=== PATIENT | female | born 1965 | race Caucasian/White ===

== ENCOUNTER 2022-11-01 02:26 | Outpatient (CLI) | payer BC, SELFPAY ==
--- NOTE | 2022-11-01 | DI.MAMMO_ITS ---
Exam(s) MAMMO SCREENING EXAM: MAMMO SCREENING CLINICAL HISTORY: SCREENING, Z12.39. TECHNIQUE: Bilateral full field digital CC and MLO mammographic images were obtained with 3D tomosyn thesis and utilizing computer aided detection (CAD). COMPARISON: Prior outside mammograms were reviewed. FINDINGS: There are no new significant findings right breast. Left breast on 3D MLO imaging there is a suggestion an asymmetric density-possible nodule located 2 c m in from the nipple on the MLO 3D images and measuring 7 x 6 mm. There are no malignant-appearing microcalcification groups in this region or elsewhere in either [address]. There is no significant architectural distortion nor skin thickening-retraction. IMPRESSION: 1. No radiographic evidence of malignancy in the right breast. 2. Asymmetric density-possible left breast nodule. Spot compression MLO view and left breast ultraso und recommended. BI-RADS Category 0 - Assessment Incomplete: Need additional imaging evaluation Breast Density - Category C - Heterogeneously dense Breast density Category C or D implies that the patient has dense breast tissue. Dense breast tissue can make it harder to find cancer on a mammogram. Dense breast tissue is also associated with an incr eased risk of breast cancer. This information about the result of the mammogram report was provided to the patient to raise their awareness. Use this report when you speak with the patient about their risks for breast cancer, which includes their family history. At that time, you may recommend additional screening tests (Ultrasoun d or MRI) as these tests may add significant information. A negative radiographic report should not delay biopsy if a dominant or clinically suspicious mass is present. Up to ten percent of cancers are not identified on mammography. A negative report may reinforce clinical impression. Adenosis and dense breasts may obscure an underlying neoplasm. False positive reports average 6 to 10%. Patient will receive a letter notifying them of these results.
== END 2022-11-01 02:46 ==
PROVIDERS: Visit Provider Nurse Practitioner Family
DX: Z12.31 Encounter for screening mammogram for malignant neoplasm of breast (principal)
CPT/HCPCS: 77063; 77067

== ENCOUNTER 2022-11-04 14:34 | Outpatient (CLI) | payer BC, SELFPAY ==
--- NOTE | 2022-11-04 | DI.MAMMO_ITS ---
Exam(s) MG MAMMO SCREEN CALL BACK UNI US BREAST LT COMPLETE EXAM: MG MAMMO SCREEN CALL BACK UNI and U/S breast LT complete CLINICAL HISTORY: F/U MAMMO, R92.8, ASYMETRIC DENSITY,? LT NODULE. TECHNIQUE: Craniocaudal and mediolateral oblique Full Field Digital Mammography views of the left br east with Computer Aided Diagnosis followed by Tomosynthesis and left breast ultrasound. COMPARISON: Comparison is made with prior examinations. FINDINGS: Mammography/Tomosynthesis: Masses/Architectural Distortion: The area of nodularity is no longer visualized on the additional vie w. No suspicious nodules or areas of architectural distortion is seen. Microcalcifictions: No suspicious pleomorphic-type are seen. Skin Thickening/Nipple Retraction: None. Complete left breast US: Echotexture: Normal appearance of the glandular tissue. Shadowing: No suspicious foci. Cyst: None. Solid lesions: None seen. Ductal dilation: None. IMPRESSION: 1. No evidence of malignancy is noted. 2. A six-month follow-up left mammogram is recommended for re-evaluation. 3. The findings were discussed with the patient on the date of the examination. BI-RADS Category 3 - 6 month - Probably Benign Finding: Recommend follow-up imaging in 6 months Breast Density - Category C - Heterogeneously dense Breast density Category C or D implies that the patient has dense breast tissue. Dense breast tissue can make it harder to find cancer on a mammogram. Dense breast tissue is also associated with an incr eased risk of breast cancer. This information about the result of the mammogram report was provided to the patient to raise their awareness. Use this report when you speak with the patient about their risks for breast cancer, which includes their family history. At that time, you may recommend additional screening tests (Ultrasoun d or MRI) as these tests may add significant information. A negative radiographic report should not delay biopsy if a dominant or clinically suspicious mass is present. Up to ten percent of cancers are not identified on mammography. A negative report may reinforce clinical impression. Adenosis and dense breasts may obscure an underlying neoplasm. False positive reports average 6 to 10%. Patient will receive a letter notifying them of these results.
== END 2022-11-04 14:54 ==
PROVIDERS: Visit Provider Nurse Practitioner Family
DX: R92.8 Other abnormal and inconclusive findings on diagnostic imaging of breast (principal)
CPT/HCPCS: 76642; 77063; 77067

== ENCOUNTER 2023-03-18 03:10 | Outpatient (CLI) | payer BC, SELFPAY ==
[2023-03-18 16:54] LABS: Calculated LDL 203 mg/dL (<100); Cholesterol 298 mg/dL (<200); HDL Cholesterol 82 mg/dL (40-60); Triglyceride 69 mg/dL (<150)
== END 2023-03-18 03:11 | disposition home or self-care (01) ==
LOC: LBO 03:10
PROVIDERS: Visit Provider Nurse Practitioner Family
DX: E78.5 Hyperlipidemia, unspecified (principal)
CPT/HCPCS: 36415; 80061

== ENCOUNTER → 2023-05-13 02:39 | Outpatient (CLI) | payer BC, SELFPAY ==
--- NOTE | 2023-05-13 | DI.MAMMO_ITS ---
Exam(s) MG MAMMO DIAGNOSTIC UNI EXAM: MG MAMMO DIAGNOSTIC UNI CLINICAL HISTORY: DIAGNOSTIC, 6 MO F/U, F/U MAMMO, R92.8 TECHNIQUE: Left cc and MLO mammogram images were performed according to the usual protocol includin g computer analysis with CAD system, tomosynthesis and C-view imaging. COMPARISON: 2017 through November 23 FINDINGS: The left breast is composed of heterogeneously dense fibroglandular tissue breast density category C. No suspicious masses or suspicious microcalcifications are seen. No skin thickening or abnormal axillary lymph nodes are seen. IMPRESSION: BI-RADS Category 1, Negative mammogram Yearly screening mammography is recommended, due in 6 months.. Breast Density - Category C - Heterogeneously dense A negative radiographic report should not delay biopsy if a dominant or clinically suspicious mass is present. Up to ten percent of cancers are not identified on mammography. A negative report may reinforce clinical impression. Adenosis and dense breasts may obscure an underlying neoplasm. False positive reports average 6 to 10%. Patient will receive a letter notifying them of these results.
== END ==
PROVIDERS: Visit Provider Nurse Practitioner Family
DX: R92.8 Other abnormal and inconclusive findings on diagnostic imaging of breast (principal)
CPT/HCPCS: 77061; 77065; G0279

== ENCOUNTER 2023-07-05 20:45 | Outpatient (REF) | payer BC, SELFPAY ==
[2023-06-25 11:47] LABS: Creatinine,Urine 27.98 mg/dL
[2023-06-25 11:53] LABS: Creatinine,24hr Ur 0.87 g/24hr (0.60-1.80); Total Volume 3100 ml
[2023-06-26 12:47] LABS: Calcium Urine 13.3 mg/dL (See Note); Calcium Urine 24 hr 412 mg/24hr (100-300); Timed Urine Volume 3100 mL
== END 2023-07-05 20:46 | disposition home or self-care (01) ==
LOC: LBN 20:45
PROVIDERS: Visit Provider Internal Medicine Endocrinology, Diabetes & Metabolism
DX: M81.0 Age-related osteoporosis without current pathological fracture (principal)
CPT/HCPCS: 81050; 82340; 82570

== ENCOUNTER 2023-12-19 11:24 | Day surgery (SDC) | payer BC, SELFPAY ==
--- NOTE | 2023-12-18 19:05 | W.PM.DSUDISC ---
Date of service: 12/19/23 Time of Service: 14:07 Discharge Plan Disposition Patient Disposition: Home Condition: Good Discharge Details Reason For Visit: screening colonoscopy Attending Provider: Gen Torres Primary Care Provider: Dianne Robertson Home Meds and New Rx's Prescriptions: Continued hydrochlorothiazide 25 mg tablet 25 mg PO DAILY zoledronic [id number] [Reclast] 5 mg/100 mL piggyback IV albuterol sulfate [Ventolin HFA] 90 mcg/actuation HFA aerosol inhaler 2 puff inhalation Q6H PRN multivitamin [Multi-Day] 1 EACH tablet 1 ea PO DAILY Fish Oil 500 MG capsule 500 mg PO DAILY Discontinued bisacodyl [Dulcolax (bisacodyl)] 5 mg tablet,delayed release (DR/EC) 5 mg PO ONCE Qty: 4 0RF Rx Instructions: Take per colonoscopy instructions provided by ordering providers office polyethylene glycol 3350 17 gram/dose powder 17 g PO ONCE Qty: 238 0RF Rx Instructions: Take per colonoscopy instructions provided by ordering providers office Discharge Instructions Instructions: Colon polyps Additional Instructions: Norma, your colonoscopy went very smoothly today. I hope you are comfortable. I did find 2 polyps today. Both were small, and I was able to remove them without any issues. These were both be sent off for testing. Once we know the nature of the polyps, then the office will be in touch with recommendations for your next colonoscopy. If you have any questions at all, please do not be afraid to call. 1. If tolerated, consume a soft, low fiber diet for 1-2 days. 2[address] Do not drive, drink alcohol, operate machinery, make critical decisions, or do activities that require coordination or balance for 24 hours. 3. Because air was put into your colon during the procedure, expelling air from your rectum (passing gas or farting) is normal. 4. You may not have a bowel movement for 1-3 days because of the colonoscopy prep. This is normal. 5. Go directly to the emergency room if you notice any of the following: Develop chills (warm to touch), or if you have a thermometer and your temperature is above 101 Difficulty breathing or difficultly swallowing Persistent vomiting Severe abdominal pain, other than gas cramps Severe chest pain Black, tarry stools Any bleeding ? exceeding one tablespoon 6. Call your physician if the site where your intravenous was started becomes red, swollen, painful, and warm to touch. 7. Your physician has reviewed your pre-procedure medications. Please continue to take those medications as previously ordered. You will be given specific information/education regarding any changes to your medications before leaving. Activity:: Activity as Tolerated Diet:: As Tolerated Discharge Orders Discharge Orders: Discharge Order (Routine); Ordered 12/18/23 Ordered By: Gen Torres DS: Diagnosis Discharge Diagnosis (1) Encounter for screening colonoscopy: Status: Acute Asessment and Plan: Follow-up on polypectomy results
--- NOTE | 2023-12-18 19:07 | COLE_ITS ---
Date of service: 12/19/23 Time of Service: 14:09 Colonoscopy Report Date of procedure: 12/19/23 Pre-op diagnosis general: screening colonoscopy Post-op diagnosis procedure note: other (Colon polyps) Procedure: colonoscopy with polypectomy Surgeon: Gen Torres Anesthesia Type: General:No Airway Estimated blood loss (mL): 5 Pathology: other (0.25 cm polyp at 60 cm, 0.25 cm polyp at 15 cm) Complications: None Disposition: same day Indications: Noram is a 58 year old woman who needs a screening colonoscopy Prep: Miralax/Dulcolax Procedure Start Time: 13:35 Procedure End Time: 14:00 Retraction Time: 12 Findings: 0.25 cm polyp at 60 cm, 0.25 cm polyp at 15 cm Procedure Description: After the induction of monitored anesthetic care, and with the patient in left lateral decubitus position, I began by performing an external anorectal exam.? Perineum and skin were normal, as was the anal verge.? There was no evidence of external hemorrhoids.? Next, I performed a digital rectal exam.? I did not appreciate any abnormal findings.? Next, I advanced a colonoscope into the rectal vault.? I performed retroflexion.? This appeared normal.? Using insufflation, I then advanced the colonoscope beyond the rectal folds and into the sigmoid colon before advancing towards the cecum.?The scope was noted to be in the cecum by identification of the ileocecal valve and appendiceal orifice.? I then began withdrawing the colonoscope using repeated irrigation as necessary for full evaluation of the colonic mucosa. Around 60 cm from the anus was a 0.25 cm flat polyp. This was removed with cold forceps. There was minimal bleeding. Once the scope was withdrawn to the level of the rectum, great care was taken to examine portions of the rectal folds. In the upper portion of the rectal vault, around 15 cm from the anus was another polyp. This was less than 0.25 cm and flat. This was also removed with cold forceps without any issues.? Finally, the scope was withdrawn and the patient was brought to the same-day surgery recovery unit as the anesthetic wore off. ?The findings and instructions were shared with the patient prior to discharge. [place] Bowel Prep [place] Bowel Prep Right Colon: 3 Left Colon: 3 Transverse Colon: 3 Total Score: 9
[2023-12-19 11:40] VITALS: BP 134/71; PULSE 74; RESP 16; TEMP 36.4; O2SAT 99
[2023-12-19] MEDS: Lactated Ringers 1,000 ML 80 ML IV (12:01)
--- NOTE | 2023-12-19 13:16 | W.ANESPRE ---
General Info Date of Service Date Performed: 12/19/23 Height: 5 ft 7.5 in Weight: 69.4 kg Body Mass Index (BMI): 23.6 Surgical Procedure: Operation Date: 12/19/23 13:20 Proposed Procedure Side Surgeon shweta Torres MD Meds Allergies and Home Medications Allergies Allergy/AdvReac Type Severity Reaction Status Date / Time shellfish derived Allergy Severe Vomiting Verified 12/19/23 11:38 erythromycin base Allergy Mild rash,vomiti Verified 12/19/23 11:38 [Erythromycin Base] ng latex Allergy Mild Anaphylaxis Verified 12/19/23 11:38 Home Medication Medication Instructions Recorded multivitamin (Multi-Day tablet) 1 ea PO DAILY 12/22/12 omega-3 fatty acids 500 mg capsule 500 mg PO DAILY 12/22/12 (Fish Oil) albuterol sulfate 90 mcg/actuation 2 puff inhalation Q6H PRN 02/09/23 aerosol inhaler (Ventolin HFA) zoledronic acid 5 mg/100 mL in IV 02/09/23 mannitol 5 %-water intravenous piggybck (Reclast) hydrochlorothiazide 25 mg tablet 25 mg PO DAILY 12/15/23 Current Visit Medications: Current Medications Generic Name Dose Route Start Last Admin Trade Name Freq PRN Reason Stop Dose Admin Hyoscyamine Sulfate 0.125 mg 12/18/23 19:09 Hyoscyamine 0.125 Mg Sl/Oral/Chew SL 01/17/24 19:08 DIRECTED PRN Ringer's Solution 1,000 mls @ 80 mls/hr 12/19/23 06:00 12/19/23 12:01 IV 01/15/24 23:59 80 mls/hr INFUSION LORI Administration IV Miscellaneous Supplies 1 each 12/19/23 06:00 Iv Access IV 01/15/24 23:59 DIRECTED LORI Ondansetron HCl 4 mg 12/18/23 19:09 Ondansetron 4 Mg/2 Ml Vial IVP 01/17/24 19:08 Q4H PRN PRN Nausea / Vomiting Sodium Chloride 0 ml 12/19/23 06:00 Normal Saline Flush 10 Ml Syr IV 01/15/24 23:59 PRN PRN Sodium Chloride 0 ml 12/19/23 06:00 Normal Saline 10 Ml Vial IJ 01/15/24 23:59 DIRECTED PRN Sterile Water 0 ml 12/19/23 06:00 Water,Injection,Sterile 10 Ml Vial IJ 01/15/24 23:59 DIRECTED PRN PFSH Active Problems Active Problems: Problem Status Onset Code Encounter for screening colonoscopy Z12.11 GERD (gastroesophageal reflux disease) K21.9 Muscle strain T14.8XXA Muscle spasm of right shoulder M62.838 Osteoporosis M81.0 Medical History Medical History (Updated 12/18/23 @ 19:06 by Gen Torres MD) Mild intermittent asthma Retinal degeneration Hyperlipidemia Family history of sudden cardiac paternal grandfather age 42 Medical History Comments:: denies gerd Pt. states at first glance an EKG will look like she's had an OR but in-fact is normal Tobacco Smoking/Tobacco Use Status: Never Alcohol Alcohol Intake: current Alcohol intake frequency: a few times a week Substance Use Substance use: Never Substance use type: does not use Vital Signs and Lab Results Vital Signs Most Recent Vital Signs in EMR: Most Recent Vital Signs Temp Pulse Resp BP Pulse Ox 36.4 C L 74 16 134/71 99 12/19/23 11:40 12/19/23 11:40 12/19/23 11:40 12/19/23 11:40 12/19/23 11:40 Lab Results Blood Type / Crossmatch: No Data to Display Complete Blood Count: No Data to Display Complete Metabolic Panel: No Data to Display Liver Function Panel: No Data to Display Coagulation Panel: No Data to Display Cardiac Panel: No Data to Display Arterial Blood Gas: No Data to Display Venous Blood Gas: No Data to Display Pancreas Panel: No Data to Display Thyroid Panel: No Data to Display Infectious Disease: No Data to Display Blood Cultures: No Data to Display Toxicology Panel: No Data to Display Anesthesia Assessment and Plan Anesthesia History Personal History: No History of Anesthesia Complications Family History: No Family History of Anesthesia Complications Exercise Tolerance Exercise Tolerance: Metabolic Equivalents<4 Pertinent Negatives Pertinent Negatives: No Symptoms of GERD Cardiac & Pulmonary Exam Cardiac Exam: Normal S1/S2 Heart Sounds Pulmonary Exam: Clear Bilateral Breath Sounds Implantable Cardiac Device Does patient have a Pacemaker or an ICD?: No Airway Exam Known Difficult Airway: No Mallampati Class: 1 Mouth Opening: Normal (> 3cm) Thyromental Distance: Greater than 3 cm Neck Range of Motion: Full ROM Neck Circumference: Normal Teeth Condition: Normal Dentition ASA Classification ASA Score: ASA 2 Emergency Case?: No NPO Status NPO Status: NPO Clears >2 hours, Solids >8 hours Anesthesia Plan Resuscitation Status: Full Code Anesthesia Technique: General Anesthesia Airway Planned: Natural Airway Monitors Used: Standard Monitors
[2023-12-19 13:17] VITALS: BMI 23.6
--- NOTE | 2023-12-19 13:52 | BOWEL_PTH ---
PATIENT: Norma Bourgeois LOC: [facility] U#:[id number] AGE/SX: 58/F ROOM: RE12/19/[address]: Gen Torres MD : 1965 BED: DIS: 12/19/2023 SPEC #: [id number] RECD: 12/19/23 18:04 STATUS: HORTENSIA RE #: [id number] RAZIA: 12/19/23 13:[address]: Gen Torres DEPT: Surgical Specimen RECD BY: Lavinia Serrano ENTERED: 12/19/23 18:05 SP TYPE: Bowel OTHR DR: Dianne Robertson Tissues: 1 - BIOPSY BOWEL 2 - BIOPSY BOWEL Procedures: GROSS AND MICRO LEVEL 4 Comments: [id number]
[2023-12-19 14:07] VITALS: BP 126/79; PULSE 81; RESP 18; TEMP 36.5; O2SAT 96
--- NOTE | 2023-12-19 14:10 | W.ANESPOSTOP ---
Postoperative Evaluation Date, Time and Location Date Performed: 12/19/23 Time Performed: 14:10 Patient Location: Day Surgery Unit Vital Signs Most Recent Imported Vital Signs: Most Recent Vital Signs Temp Pulse Resp BP Pulse Ox 36.4 C L 74 16 134/71 99 12/19/23 11:40 12/19/23 11:40 12/19/23 11:40 12/19/23 11:40 12/19/23 11:40 Pain Score Most Recent Pain Score: Most Recent Pain Score Pain Level 0 12/19/23 11:40 Assessment Mental Status: Awake (Alert & Oriented to Patient Baseline) Airway and Respiratory Function: Patent airway with normal (patient baseline) respiratory exam Cardiovascular Function: Hemodynamically Stable Hydration Status: Adequately Hydrated Nausea & Vomiting: No Nausea or Vomiting Pain: Pt. Denies Any Pain Peripheral Nerve Block: Patient did not receive a nerve block
[2023-12-19 14:29] VITALS: BP 119/59; PULSE 72; RESP 18; TEMP 36.4; O2SAT 99
== END 2023-12-19 15:04 | disposition home or self-care (01) ==
LOC: SUR 11:24
PROVIDERS: PCP Nurse Practitioner Family; Visit Provider Surgery
PROC: 0DJD8ZZ Inspection of Lower Intestinal Tract, Via Natural or Artificial Opening Endoscopic (ICD-10-PCS; CPT 45378; principal; 2023-12-19 13:15)
DX: Z12.11 Encounter for screening for malignant neoplasm of colon (principal); D12.4 Benign neoplasm of descending colon; K62.1 Rectal polyp
CPT/HCPCS: 45380; 88305; J2704

== ENCOUNTER 2024-01-06 02:55 | Outpatient (CLI) | payer BC, SELFPAY ==
[2024-01-06 10:01] LABS: Abs Immature Grans 0.02 10^3/uL (0.0-0.06); Absolute Basophil Count 0.05 10^3/uL (0.0-0.2); Absolute Eosinophil Count 0.13 10^3/uL (0.0-0.7); Absolute Lymphocyte Count 2.07 10^3/uL (1.2-3.4); Absolute Monocyte Count 0.63 10^3/uL (0.1-0.8); Absolute Neutrophil Count 3.84 10^3/uL (1.2-6.7); Basophils % 0.7 %; Eosinophils % 1.9 %; HCT 40.3 % (36.0-46.0); HGB 13.6 g/dL (11.2-15.7); Immature Grans % 0.3 %; Lymphocytes % 30.7 %; MCH 30.2 pg (27.0-33.0); MCHC 33.7 % (32.0-36.0); MCV 89 fL (80-95); MPV 10.1 fL (8.0-11.0); Monocytes % 9.3 %; Neutrophils % 57.1 %; Platelet Count 331 10^3/uL (130-400); RBC 4.51 10^6/uL (3.93-5.22); RDW 12.4 % (11.7-14.6); RDW-SD 40.5 fL; WBC 6.74 10^3/uL (4.4-10.8)
[2024-01-06 10:17] LABS: ALT 68 U/L (14-59); AST 37 U/L (15-37); Albumin 3.8 g/dL (3.4-5.0); Alkaline Phosphatase 113 U/L (46-116); Anion Gap 8.3 mmol/L (3-11); BUN 14 mg/dL (7-18); Bilirubin, Total 0.65 mg/dL (0.2-1.0); CO2 28.7 mmol/L (21.0-32.0); CREATININE 0.7 mg/dL (0.55-1.02); Calcium 8.6 mg/dL (8.5-10.1); Calculated LDL 208 mg/dL (<100); Chloride 100 mmol/L (98-107); Cholesterol 302 mg/dL (<200); Estimated GFR 100.19 (mL/min/1.73m2); Glucose 97 mg/dL (74-106); HDL Cholesterol 78 mg/dL (40-60); Potassium 3.4 mmol/L (3.5-5.1); Sodium 137 mmol/L (136-145); Total Protein 7.8 g/dL (6.4-8.2); Triglyceride 80 mg/dL (<150)
== END 2024-01-06 02:56 | disposition home or self-care (01) ==
LOC: LBO 02:56
PROVIDERS: PCP Nurse Practitioner Family; Visit Provider Nurse Practitioner Family
DX: R04.0 Epistaxis (principal); E78.5 Hyperlipidemia, unspecified; Z13.6 Encounter for screening for cardiovascular disorders
CPT/HCPCS: 36415; 80053; 80061; 85025

== ENCOUNTER 2024-02-17 18:53 | Outpatient (REF) | payer BC, SELFPAY ==
--- NOTE | 2024-02-17 11:55 | PAPFT_PTH ---
PATIENT: Norma Bourgeois LOC: [facility] U#:[id number] AGE/SX: 59/F ROOM: RE02/17/[address]: Dianne Robertson : 1965 BED: DIS: 02/17/2024 SPEC #: [id number] RECD: 02/20/24 12:57 STATUS: HORTENSIA REQ #: [id number] RAZIA: 02/17/24 11:[address]: Dianne Robertson [facility] Cytology RECD BY: Lavinia Serrano Tissues: 1 - CX/ENDOCX FOR PAP SMEARS Procedures: PAP THIN PREP/[facility] Screening HPV DNA PROBE Comments: [id number] (HPV 16 & 18/45)
== END 2024-02-17 18:54 | disposition home or self-care (01) ==
LOC: NCHCN 18:53
PROVIDERS: PCP Nurse Practitioner Family; Visit Provider Nurse Practitioner Family
DX: Z01.419 Encounter for gynecological examination (general) (routine) without abnormal findings (principal); Z11.51 Encounter for screening for human papillomavirus (HPV)
CPT/HCPCS: 88142; 87624

== ENCOUNTER 2024-02-21 01:19 | Outpatient (CLI) | payer BC, SELFPAY ==
--- NOTE | 2024-02-21 | DI.MAMMO_ITS ---
Exam(s) MAMMO SCREENING EXAM: MAMMO SCREENING CLINICAL HISTORY: SCREENING, Z12.31 TECHNIQUE: Mammograms were interpreted according to the usual protocol including computer analysis w [employer] CAD system, tomosynthesis and C-view imaging. COMPARISON: 2017 through 2022 FINDINGS: The breasts are composed of heterogeneously dense fibroglandular densities, Breast Density category C . No suspicious masses or suspicious microcalcifications are seen. No skin thickening or abnormal axillary lymph nodes are seen. There has been no significant change from prior exams. IMPRESSION: BI-RADS Category 1, Negative mammogram. Yearly screening mammography is recommended. Breast Density Category C, heterogeneously Dense. The mammogram demonstrates the patient's breast tissue is dense. Dense breast tissue is very common a nd is not abnormal but dense breast tissue can make it harder to find cancer on a mammogram. Also, de nse breast tissue may increase breast cancer risk. This information about the result of the mammogram report was provided to the patient to raise their awareness. Use this report when you speak with the patient about their risks for breast cancer, which includes their family history. At that time, you may recommend additional screening tests (Ultrasound or MRI) as they might be useful based on their r isk. A negative radiographic report should not delay biopsy if a dominant or clinically suspicious mass is present. Up to ten percent of cancers are not identified on mammography. A negative report may reinforce clinical impression. Adenosis and dense breasts may obscure an underlying neoplasm. False positive reports average 6 to 10%.
== END 2024-02-21 01:39 ==
LOC: DI 01:19
PROVIDERS: PCP Nurse Practitioner Family; Visit Provider Nurse Practitioner Family
DX: Z12.31 Encounter for screening mammogram for malignant neoplasm of breast (principal); R92.8 Other abnormal and inconclusive findings on diagnostic imaging of breast
CPT/HCPCS: 77063; 77067

== ENCOUNTER 2025-03-08 05:31 | Outpatient (CLI) | payer BC, SELFPAY ==
--- NOTE | 2025-03-08 | DI.MAMMO_ITS ---
Exam(s) MAMMO SCREENING EXAM: MAMMO SCREENING CLINICAL HISTORY: SCREENING MAMMO Z12.31 TECHNIQUE: Mammograms were interpreted according to the usual protocol including computer analysis with CAD system, tomosynthesis and C-view imaging. COMPARISON: 2017 through 2023 FINDINGS: The breasts are composed of heterogeneously dense fibroglandular densities, Breast Density category C. No suspicious masses or suspicious microcalcifications are seen. No skin thickening or abnormal axillary lymph nodes are seen. There has been no significant change from prior exams. IMPRESSION: BI-RADS Category 1, Negative mammogram. Yearly screening mammography is recommended. Breast Density: Category C - The breasts are heterogeneously dense, which may obscure small masses. Breast density Category C or D implies that the patient has dense breast tissue. Dense breast tissue can make it harder to find cancer on a mammogram. Dense breast tissue is also associated with an increased risk of breast cancer. This information about the result of the mammogram report was provided to the patient to raise their awareness. Use this report when you speak with the patient about their risks for breast cancer, which includes their family history. At that time, you may recommend additional screening tests (Ultrasound or MRI) as these tests may add significant information. A negative radiographic report should not delay biopsy if a dominant or clinically suspicious mass is present. Up to ten percent of cancers are not identified on mammography. A negative report may reinforce clinical impression. Adenosis and dense breasts may obscure an underlying neoplasm. False positive reports average 6 to 10%.
== END 2025-03-08 05:51 ==
PROVIDERS: PCP Nurse Practitioner Family; Visit Provider Student in an Organized Health Care Education/Training Program
DX: Z12.31 Encounter for screening mammogram for malignant neoplasm of breast (principal); R92.333 Mammographic heterogeneous density, bilateral breasts; R92.323 Mammographic fibroglandular density, bilateral breasts
CPT/HCPCS: 77063; 77067

== ENCOUNTER 2025-07-02 15:22 | Outpatient (REF) | payer BC, SELFPAY ==
[2025-07-02 19:28] LABS: ALT 111 U/L (10-49); AST 80 U/L (<34); Albumin 4.6 g/dL (3.2-5.0); Alkaline Phosphatase 103 U/L (46-116); Anion Gap 11.3 mmol/L (3-11); BUN 17 mg/dL (9-23); Bilirubin, Total 0.4 mg/dL (0.2-1.2); CO2 27.7 mmol/L (20.0-31.0); Calcium 9.9 mg/dL (8.3-10.6); Chloride 103 mmol/L (98-107); Glucose 87 mg/dL (74-106); Potassium 4.2 mmol/L (3.5-5.1); Sodium 142 mmol/L (136-145); Total Protein 7.6 g/dL (5.7-8.2)
== END 2025-07-02 15:23 | disposition home or self-care (01) ==
LOC: NCHCN 15:22
PROVIDERS: PCP Nurse Practitioner Family; Visit Provider Student in an Organized Health Care Education/Training Program
DX: R74.01 Elevation of levels of liver transaminase levels (principal)
CPT/HCPCS: 80053